=== PATIENT | female | born 1970 | race American Indian/Alaskan Native ===

== ENCOUNTER 2019-02-20 06:08 | Observation (INO) | payer BC ==
[2019-02-16 11:46] LABS: Basophils % (Auto) 0.8 % (0.0-1.8); Eosinophils % (Auto) 1.1 % (0.0-4.3); Hematocrit 40.3 % (30.3-42.9); Lymphocytes # (Auto) 0.9 K/mm3 (1.2-5.4); Lymphocytes % (Auto) 20.4 % (13.4-35.0); Mean Corpuscular HGB Conc 32 % (30-34); Mean Corpuscular Volume 81 fl (79-97); Monocytes # (Auto) 0.4 K/mm3 (0.0-0.8); Monocytes % (Auto) 8.4 % (0.0-7.3); Platelet Count 259 K/mm3 (140-440); Red Cell Distribution Width 15.9 % (13.2-15.2)
--- NOTE | 2019-02-16 12:06 | Anesthesia Consultation ---
Anesthesia Consult and Med Hx Date of service: 02/20/19 - Airway Anesthetic Teeth Evaluation: Good ROM Head & Neck: Adequate Mental/Hyoid Distance: Adequate Mallampati Class: Class II Intubation Access Assessment: Probably Good - Pulmonary Exam CTA: Yes - Cardiac Exam Cardiac Exam: RRR - Pre-Operative Health Status ASA Pre-Surgery Classification: ASA2, ASA3 - Pulmonary Hx Smoking: No Hx Asthma: No Home Oxygen Therapy: No Hx Sleep Apnea: No - Cardiovascular System Hx Hypertension: No Hx Cardia Arrhythmia: No - Central Nervous System Hx Neuromuscular Disorder: Yes (Migraines controlled with Maxalt) Hx Psychiatric Problems: No - Gastrointestinal Hx Gastroesophageal Reflux Disease: Yes - Endocrine Hx Renal Disease: No Hx Liver Disease: No Hx Insulin Dependent Diabetes: No Hx Non-Insulin Dependent Diabetes: No Hx Thyroid Disease: No - Hematic Hx Anemia: No Hx Sickle Cell Disease: Yes (TRAIT) - Other Systems Hx Alcohol Use: Yes Hx Substance Use: No Hx Cancer: No Hx Obesity: Yes - Additional Comments Anesthesia Medical History Comments: No GAC, No FHAC
[2019-02-16 12:11] LABS: Alanine Aminotransferase 44 units/L (7-56); BUN/Creatinine Ratio 17; Blood Urea Nitrogen 15 mg/dL (7-17); Hemolysis Index 7; LDL Cholesterol,Direct 174 mg/dL (50-130)
[2019-02-16 13:30] LABS: Chol/HDL Ratio 3.77 %; HDL Cholesterol 61 mg/dL (40-59)
[~2019-02-20 06:08] MED LIST: ANCEF/STERILE WATER 2 GM/20 ML 2 GM/20 ML SYRINGE IV NR; APRESOLINE IV PRN; FLAGYL 500 MG/100 ML 500 MG/100 ML BAG IV NR; LOVENOX SUB-Q NR; MORPHINE IV PRN; REGLAN IV PRN; TRANSDERM-SCOP TD SCH; ZOFRAN IV PRN
[2019-02-20] MEDS ORDERED: NACL BACTERIOSTATIC INFILTRATI ONE (06:45)
[2019-02-20] MEDS: LACTATED RINGERS 1,000 ML IV SCH ×3 (06:50→21:01)
[2019-02-20] MEDS ORDERED: XYLOCAINE 1% 20 mL ONE (07:00)
[2019-02-20] MEDS ORDERED: MARCAINE-EPI 0.5%-1:200,000 INFILTRATI ONE ×2 (07:00→08:39)
[2019-02-20] MEDS ORDERED: ZEMURON IV ONE (07:27)
[2019-02-20] MEDS ORDERED: XYLOCAINE MPF 2% ONE (07:27)
[2019-02-20] MEDS ORDERED: QUELICIN ONE (07:27)
[2019-02-20] MEDS ORDERED: NEURONTIN ONE (07:27)
[2019-02-20] MEDS ORDERED: SUBLIMAZE ONE ×2 (07:27→09:03)
[2019-02-20] MEDS ORDERED: DIPRIVAN 10 MG/ML IV ONE (07:28)
[2019-02-20] MEDS ORDERED: PEPCID IV ONE (07:28)
[2019-02-20] MEDS ORDERED: TYLENOL ONE (07:28)
[2019-02-20] MEDS ORDERED: LOVENOX SUB-Q NR (08:00)
[2019-02-20] MEDS ORDERED: DECADRON ONE (08:26)
[2019-02-20] MEDS ORDERED: ZOFRAN ONE (08:26)
[2019-02-20] MEDS ORDERED: XYLOCAINE 1% 20 mL INFILTRATI ONE (08:39)
[2019-02-20] MEDS ORDERED: NACL 0.9% IR ONE ×2 (08:40)
[2019-02-20] MEDS ORDERED: ROBINUL ONE (09:48)
[2019-02-20] MEDS ORDERED: BLOXIVERZ ONE (09:48)
[2019-02-20] MEDS: TORADOL IV SCH ×3 (10:17→18:12)
[2019-02-20] MEDS ORDERED: DILAUDID IV PRN (10:18)
--- NOTE | 2019-02-20 10:18 | Anesthesia Day of Surgery ---
Anesthesia Day of Surgery - Day of Surgery Patient Examined: Yes Patient H&P Reviewed: Yes Patient is NPO: Yes Beta Blockers: No (was on phenteramine last took on 02/19) Cardiac Clearance: No Pulmonary Clearance: No Mario's Test: N/A
[2019-02-20] MEDS: MYLICON PO PRN ×2 (10:24→21:04)
[2019-02-20] MEDS: DILAUDID IV PRN ×3 (12:59→22:59)
[2019-02-21] MEDS: DILAUDID IV PRN (03:34)
[2019-02-21] MEDS: MYLICON PO PRN (03:44)
[2019-02-21] MEDS: TORADOL IV SCH ×3 (03:44→12:00)
[2019-02-21] MEDS: LACTATED RINGERS 1,000 ML IV SCH (04:52)
[2019-02-21] MEDS ORDERED: BENADRYL IV ONE ×2 (05:21→12:27)
--- NOTE | 2019-02-21 07:58 | Discharge Summary ---
Providers - Providers Date of Admission: 02/20/19 06:09 Date of discharge: 02/21/19 Attending physician: SACHIN ALARCON Primary care physician: [employer] [employer]OP[facility]NAGER Hospitalization Reason for admission: postop care Condition: Good Procedures: 02/20/19: Laparoscopic gastric restrictive procedure, entero-enterostomy with Ry reconstruction Hospital course: 49F admitted after her operation for routine monitoring. She had no issues, tolerated a CLD, and was dc home the next day. Disposition: DC-01 TO HOME OR SELFCARE Core Measure Documentation - Palliative Care Palliative Care/ Comfort Measures: Not Applicable - Core Measures Any of the following diagnoses?: none - VTE Discharge Requirements Deep Vein Thrombosis/Pulmonary Embolism Present on Admission: No - Acute ME Discharge Requirements Aspirin at discharge: No Reason for no aspirin on DC: Surgical contraindication - Heart Failure Discharge Requirements EUGENE/ARB for LVSD if EF <40%: Not Applicable - Stroke Discharge Requirements Statin for LDL = or >70 mg/dl on DC: Not Applicable Exam - Physical Exam Narrative exam: Gen: AAO, NAD Heart: RRR Lungs: CTAB Abd: soft, NT, ND, bandages c/d/i Ext: No LE edema - Constitutional Vitals: Temp Pulse Resp BP Pulse Ox 98.0 F 87 18 102/64 97 02/21/19 07:10 02/21/19 07:10 02/21/19 07:10 02/21/19 07:10 02/21/19 07:10 Plan Diet: clear liquids Wound: keep clean and dry Special Instructions: no heavy lifting Additional Instructions: elias Alarcon as scheduled Follow up with: PRIMARY CAREMD [Primary Care Provider] - 7 Days
[2019-02-21] MEDS: NORCO PO PRN ×2 (08:26→12:52)
[2019-02-21] MEDS: LOVENOX SUB-Q SCH ×2 (08:32→10:00)
[2019-02-21 08:48] LABS: Basophils % (Auto) 0.1 % (0.0-1.8); Hematocrit 34.4 % (30.3-42.9); Hemoglobin 10.6 gm/dl (10.1-14.3); Lymphocytes # (Auto) 0.7 K/mm3 (1.2-5.4); Mean Corpuscular HGB Conc 31 % (30-34); Mean Corpuscular Volume 83 fl (79-97); Monocytes # (Auto) 0.6 K/mm3 (0.0-0.8); Monocytes % (Auto) 9.3 % (0.0-7.3); Platelet Count 206 K/mm3 (140-440); Red Blood Count 4.14 M/mm3 (3.65-5.03); Red Cell Distribution Width 16.2 % (13.2-15.2)
[2019-02-21 09:08] LABS: Blood Urea Nitrogen 9 mg/dL (7-17); Hemolysis Index 14
[2019-02-21 09:23] LABS: BUN/Creatinine Ratio 11; Calcium 8.2 mg/dL (8.4-10.2)
[2019-02-21 12:14] VITALS: BP 115/76
== END 2019-02-21 14:15 | disposition home or self-care (01) ==
LOC: OR 06:08 → 3B-SURG 06:09
PROVIDERS: ADMIT Specialist; ATTEND Specialist
DX: K30 Functional dyspepsia (principal); E66.01 Morbid (severe) obesity due to excess calories; K21.9 Gastro-esophageal reflux disease without esophagitis; M12.9 Arthropathy, unspecified; M54.89 Other dorsalgia; R32 Unspecified urinary incontinence; R06.02 Shortness of breath; Z68.38 Body mass index [BMI] 38.0-38.9, adult; Z98.82 Breast implant status; Z98.84 Bariatric surgery status; Z98.890 Other specified postprocedural states; Z88.8 Allergy status to other drugs, medicaments and biological substances
CPT/HCPCS: 36415; 43281; 43645; 80048; 80053; 80061; 84443; 85025; 88307; 93005; 93010; 94760; 96372; 96374; 96375; 96376; A4217; G0378; J0330; J0360; J0690; J1100; J1170; J1200; J1650; J1885; J2405; J2704; J2710; J3010; J7120